=== PATIENT | female | born 1980 | race Caucasian/White ===

== ENCOUNTER 2016-10-09 16:53 | Emergency (ER) | payer MEDICAID ==
[~2016-10-09] VITALS: Ht 170.2 cm; Wt 89.1 kg
[~2016-10-09 16:53] MED LIST: ALBUTEROL SUL0.083 % IN; AMOXICILLIN500 MG PO; AZITHROMYCIN250 MG PO; CIPRO500 MG OR; DILAUDID2 MG OR; DILAUDID4 MG PO; FERROUS SULFAT325 MG PO; FISH OIL1000 MG PO; FLAGYL500 MG PO; FLEXERIL5 MG PO; FLOMAX0.4 M1 PO; FOLIC ACID1 MG PO; IRON325 MG OR; KLONOPIN1 MG PO; MACROBID100 MG PO; MEDDOSEPAK OR; METROGEL VAG0.75 % VA; MIRCETTE28 DAY PO; MORPHINE SUL30 M3 PO; MOTRIN800 MG/TAB PO; MS CONTIN30 MG PO; MUCINEX600 MG PO; NAPROSYN500 MG PO; NYSTATIN100000 M3 TOP; OB COMPLET2 PO; OMNICEF300 MG PO; ONDANSETRON ODT8 MG PO; ONDANSETRON4 MG OR; OXYCODONE HCL15 MG PO; OXYCODONE30 MG OR; OXYCODONE30 MG PO; PERCOCET 5/325M1 TAB PO; PREDNISONE10 MG PO; PRENATAL/FE PO; PROMETHAZINE25 MG OR; QVAR80 MCG IN; ROCEPHIN 2250 MG/VIA IM; SOMA350 MG PO; ULTRAM50 M1 PO; ZOFRAN ODT4 MG PO
[2016-10-09 19:36] VITALS: BP 156/82
[2016-10-09] MEDS ORDERED: CEPHALEXIN500 MG PO (19:40)
== END 2016-10-09 19:58 | disposition home or self-care (01) | DRG 605 ==
LOC: ED 16:53
PROC: 0HDRXZZ Extraction of Toe Nail, External Approach (ICD-10-PCS; principal; 2016-10-09)
DX: S91.202A Unspecified open wound of left great toe with damage to nail, initial encounter (principal); W22.09XA Striking against other stationary object, initial encounter; Y93.01 Activity, walking, marching and hiking; Y92.828 Other wilderness area as the place of occurrence of the external cause